=== PATIENT | female | born 1985 | race African-American/Black ===

== ENCOUNTER 2017-10-21 08:05 | Emergency (ER) | payer OTHER ==
[~2017-10-21] VITALS: Ht 157.5 cm; Wt 77.1 kg
[2017-10-21 08:11] VITALS: BP 104/71
--- NOTE | 2017-10-21 08:25 | ED INFLUENZA/URI COMPLAINT ---
History of Present Illness General Chief Complaint: Upper Respiratory Sx/Fever Stated Complaint: COUGH, CONGESTION, FEVER X 1 DAY Source: patient Exam Limitations: no limitations Vital Signs & Intake/Output Vital Signs & Intake/Output Vital Signs Date Time Temp Pulse Resp B/P B/P Pulse O2 O2 Flow FiO2 Mean Ox Delivery Rate 10/21 0811 97.0 88 18 104/71 97 Room Air Room Air Allergies Uncoded Allergies: FLU VACCINE (Intermediate, REDNESS, ITCH, SWELLING AT INJECTION SITE. 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 ALSO C/O SORE THROAT, "MY DAUGHTER HAS STREP". Triage Nurses Notes Reviewed? yes Onset: Gradual Duration: constant Timing: recent history Severity: moderate Severity Numbers: 5 : No Patient currently breastfeeds: No HPI: Patient is a 32-year-old female who presents emergency with concerns of upper respiratory infection of nasal congestion cough generalized weakness and fatigue body aches sore throat Patient is an every day smoker and has positive sick contacts at home. Past History Travel History Traveled to [place] past 21 day No Medical History Any Pertinent Medical History? 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 No Review of Systems Review of Systems Constitutional: Reports: see HPI, chills. EENTM: Reports: see HPI, nasal congestion, throat pain. Respiratory: Reports: see HPI, cough. Cardiovascular: Reports: see HPI. GI: Reports: no symptoms. Genitourinary: Reports: no symptoms. Musculoskeletal: Reports: see HPI, joint pain. Skin: Reports: see HPI. Neurological/Psychological: Reports: see HPI. Hematologic/Endocrine: Reports: no symptoms. Immunologic/Allergic: Reports: no symptoms. All Other Systems: Reviewed and Negative Physical Exam Physical Exam General Appearance: no apparent distress, alert, comfortable Head: atraumatic Eyes: Bilateral: normal appearance, PERRL. Ears, Nose, Throat: moist mucous membrane, hearing grossly normal, Tympanic normal, pharynx normal, nasal congestion, nasal drainage, NONTENDER SINUS Neck: normal inspection Respiratory: normal breath sounds, chest non-tender, no respiratory distress Cardiovascular: regular rate/rhythm Gastrointestinal: normal bowel sounds, soft, non-tender Extremities: normal inspection Neurologic/Psych: no motor/sensory deficits, awake Skin: intact, normal color, warm/dry Core Measures Sepsis Present: No Sepsis Focused Exam Completed? No Progress Differential Diagnosis: influenza, meningitis, neutropenia, otitis, pneumonia, pharyngitis, sinusitis Plan of Care: Orders Procedure Date/time Status RAPID VIRAL INFLUENZA A 10/22 819 Complete THROAT CULTURE W/QUICK STREP 10/22 0716 Active Microbiology 10/22 819 NASOPHARYN: Influenza Virus A & B Rapid Smear - COMP Patient on initial examination was afebrile nontoxic appearing clear lungs auscultation nontender sinus unremarkable oropharynx and ear exam. Rapid strep was negative culture pending Influenza was negative. Due to history of present illness and exam findings likely suspicion a viral syndrome Initial ED EKG: none Departure Departure Disposition: HOME OR SELF CARE Condition: Stable Clinical Impression Primary Impression: URI (upper respiratory infection) Secondary Impressions: Rhinitis, Viral syndrome Referrals: Kecia Godinez CNM Additional Instructions: As discussed please discontinue smoking and continue home medications as directed, begin the prescription for Cheratussin on Tessalon Perles for cough Flonase for congestion Magic mouthwash for sore throat, prescriptions waiting at [place] [facility], if symptoms worsen return to the emergency room, if no better in 4 days follow-up with your doctor Departure Forms: Customer Survey General Discharge Information Prescriptions: Current Visit Scripts Codeine Phosphate/Guaifenesi (Cheratussin AC Syrup) 10 ML PO BID PRN COUGH #100 ML DO NOT TAKE THIS 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
[2017-10-21] MEDS ORDERED: CHERATUSSIN AC118 M1 PO (08:35)
[2017-10-21] MEDS ORDERED: TESSALON PERLE100 M1 PO (08:35)
[2017-10-21] MEDS ORDERED: FLONASE ALLERG9.9 ML NAS (08:35)
[2017-10-21] MEDS ORDERED: MAGIC MOUTHWASH PO (08:38)
== END 2017-10-21 09:07 ==
LOC: ERH 08:05
DX: J06.9 Acute upper respiratory infection, unspecified (principal); J31.0 Chronic rhinitis; B34.9 Viral infection, unspecified; F17.210 Nicotine dependence, cigarettes, uncomplicated
CPT/HCPCS: 87804; 87804-59